=== PATIENT | male | born 1980 | race Asian ===

== ENCOUNTER 2020-09-11 09:25 | Emergency (ER) | payer SELFPAY ==
[~2020-09-11] VITALS: Ht 160 cm; Wt 68.6 kg
[2020-09-11 09:35] VITALS: BP 147/103
[2020-09-11] MEDS ORDERED: LEVE100S PO (10:26)
[2020-09-11] MEDS ORDERED: LAMO150T2 PO (10:26)
== END 2020-09-11 11:02 | disposition home or self-care (01) ==
LOC: EDBD 09:26 → ER 09:26
DX: R56.9 Unspecified convulsions (principal); R62.50 Unspecified lack of expected normal physiological development in childhood; Z79.899 Other long term (current) drug therapy; Z76.0 Encounter for issue of repeat prescription
CPT/HCPCS: 99284

== ENCOUNTER 2020-10-12 15:39 | Emergency (ER) | payer MEDICAID ==
[~2020-10-12] VITALS: Ht 172.7 cm; Wt 65.0 kg
[~2020-10-12 15:39] MED LIST: LAMO150T2 PO; LEVE100S PO
[2020-10-12 16:04] VITALS: BP 181/102
[2020-10-12] MEDS ORDERED: LEVE100S PO (16:11)
== END 2020-10-12 16:17 | disposition home or self-care (01) ==
LOC: ER 15:39
DX: G40.909 Epilepsy, unspecified, not intractable, without status epilepticus (principal); Z76.0 Encounter for issue of repeat prescription
CPT/HCPCS: 99281